=== PATIENT | female | born 1960 ===

== ENCOUNTER 2018-11-16 23:22 | Emergency (ER) | payer OTHER ==
[~2018-11-16] VITALS: Ht 170.2 cm; Wt 71.7 kg
[~2018-11-16 23:22] MED LIST: ALTACE10 MG PO; ASPIR-TRIN325 MG; LEVAQUIN750 MG PO; LUNESTA3 MG PO; ORPHENADRI30 MG/1 ML IJ; TORADOL60 MG IM; ULTRACET PO; XANAX XR0.5 MG PO
[2018-11-16] MEDS ORDERED: ASPIR 8181 MG (23:52)
[2018-11-17] MEDS ORDERED: DUI500 PO (05:16)
[2018-11-17] MEDS ORDERED: KETO10TA2 PO (05:17)
[2018-11-17] MEDS ORDERED: VISTARIL50 MG PO (05:17)
[2018-11-17] MEDS ORDERED: DOLOGESIC 500-1 EACH PO (05:21)
== END 2018-11-17 05:27 | disposition home or self-care (01) ==
LOC: ER 23:22
DX: S90.111A Contusion of right great toe without damage to nail, initial encounter (principal); L03.031 Cellulitis of right toe; X58.XXXA Exposure to other specified factors, initial encounter; Y93.89 Activity, other specified; Y92.89 Other specified places as the place of occurrence of the external cause; Y99.8 Other external cause status

== ENCOUNTER 2018-11-23 13:48 | Inpatient (IN) | payer OTHER ==
[~2018-11-23] VITALS: Ht 170.2 cm; Wt 68.0 kg
[~2018-11-23 13:48] MED LIST changes: +ASPIR 8181 MG; +DOLOGESIC 500-1 EACH PO; +DUI500 PO; +KETO10TA2 PO; +VISTARIL50 MG PO
== END 2018-11-26 15:48 | disposition home or self-care (01) | DRG 392 ==
LOC: ER 13:48 → MEDJ 23:07 → SURG 23:07 → SEC-K 11-24 00:23 → SURG 11-24 00:27
PROVIDERS: ADMIT Internal Medicine
PROC: BW21YZZ Computerized Tomography (CT Scan) of Abdomen and Pelvis using Other Contrast (ICD-10-PCS; principal; 2018-11-23)
DX: K57.32 Diverticulitis of large intestine without perforation or abscess without bleeding (principal); I10 Essential (primary) hypertension

== ENCOUNTER 2019-11-06 06:38 | Emergency (ER) | payer OTHER ==
[~2019-11-06] VITALS: Ht 170.2 cm; Wt 70.3 kg
== END 2019-11-06 12:13 | disposition home or self-care (01) ==
LOC: ER 06:38
DX: J32.8 Other chronic sinusitis (principal); B96.0 Mycoplasma pneumoniae [M. pneumoniae] as the cause of diseases classified elsewhere

== ENCOUNTER 2019-12-20 11:22 | Outpatient (CLI) | payer OTHER | END 2019-12-20 15:17 | disposition home or self-care (01) | LOC: LAB 11:22 | DX: J11.1 Influenza due to unidentified influenza virus with other respiratory manifestations (principal) ==

== ENCOUNTER → 2020-01-17 | Outpatient (CLI) | payer OTHER | END | disposition home or self-care (01) | LOC: RAD 10:55 | DX: J44.1 Chronic obstructive pulmonary disease with (acute) exacerbation (principal); J30.1 Allergic rhinitis due to pollen ==